=== PATIENT | male | born 1945 | race Caucasian/White ===

== ENCOUNTER 2022-09-21 05:41 | Inpatient (IN) ==
[2022-09-20 16:01] LABS: Bacteria,Urine Occasional /HPF (Few); Glucose,Urine (UA) Negative (Negative); Ketones,Urine Negative (Negative); Nitrite,Urine Negative (Negative); Protein,Urine Negative (Negative); RBC,Urine <1 /HPF (0-4); Urine Appearance Clear (Clear); Urine Color Light Yellow (Yellow)
[2022-09-20 16:02] LABS: Bilirubin,Urine Negative (Negative); Blood, Urine Negative (Negative); Urine Urobilinogen 0.2 eU/dL (<2.0)
[2022-09-20 16:03] LABS: Basophils % 0.4 % (0.0-0.8); Eosinophils # 0.4 10*3/uL (0.0-0.87); Eosinophils % 5.1 % (0.00-10.9); Hematocrit 38.8 VOL% (42.0-52.0); Hemoglobin 12.4 GM/DL (14.0-18.0); Immature Granulocytes % 0.4 %; Immature Granulocytes Absolute 0.03 #; Lymphocytes # 1.3 10*3/uL (1.4-4.0); Lymphocytes % 18.1 % (21.2-54.2); Mean Platelet Volume 11.1 FL (9.6-12.0); Monocytes # 0.6 10*3/uL (0.11-0.8); Monocytes % 8.2 % (1.7-12.7); Neutrophils % 67.8 % (38.7-73.9); Platelet Count 230 T/CUMM (130-400); Red Blood Count 3.92 MC/CUMM (3.8-5.5); Red Cell Distribution Width 13.8 % (9.3-17.3); White Blood Count 7.1 T/CUMM (4-12)
[2022-09-20 16:16] LABS: PT Patient Result 11.5 SECS (10.1-12.1); Partial Thromboplastin Time 36.5 SECS (23.7-32.9)
[2022-09-20 16:20] LABS: Albumin 3.6 G/DL (3.4-5.0); Bilirubin,Total 0.4 MG/DL (0.20-1.00); Calcium 9.1 MG/DL (8.5-10.1); Osmolality,Calculated 292.1 MOS/KG (273-304); Total Protein 6.6 G/DL (6.4-8.2)
[2022-09-21] MEDS ORDERED: CLINDAMYCIN INJ 900 MG/50 ML PREMIX IV ONE (06:00)
[2022-09-21] MEDS ORDERED: VANCOMYCIN INJ 1,000 MG in SODIUM CHLORIDE 0.9% 250 ML IV ONE ×2 (06:00→16:30)
[2022-09-21] MEDS ORDERED: LACTATED RINGERS 1,000 ML IV SCH (06:00)
[2022-09-21] MEDS ORDERED: GABAPENTIN 400 MG CAPSULE PO ONE (06:51)
[2022-09-21] MEDS ORDERED: FAMOTIDINE 20 MG TABLET PO ONE (06:51)
[2022-09-21] MEDS ORDERED: ACETAMINOPHEN 500 MG TABLET PO ONE (06:51)
[2022-09-21] MEDS ORDERED: BACITRACIN OINT 0.9 GM PACK TOP ONE (07:20)
[2022-09-21] MEDS ORDERED: ROPIVACAINE 0.5% 30 ML VIAL ONE (07:57)
[2022-09-21] MEDS ORDERED: LIDOCAINE 1% 5 ML VIAL ONE (07:57)
[2022-09-21] MEDS ORDERED: MIDAZOLAM 2 MG/2 ML VIAL ONE (08:07)
[2022-09-21] MEDS ORDERED: buprenorphine HCL 0.3 MG/ML VIAL ONE (08:07)
[2022-09-21] MEDS ORDERED: fentaNYL 100 MCG/2 ML VIAL ONE (08:07)
[2022-09-21] MEDS ORDERED: ZALEPLON 5 MG CAPSULE PO PRN (08:29)
[2022-09-21] MEDS ORDERED: diphenhydrAMINE CAP 25 MG CAPSULE PO PRN (08:29)
[2022-09-21] MEDS ORDERED: MORPHINE 2 MG/1 ML SYRINGE IV PRN ×2 (08:29)
[2022-09-21] MEDS ORDERED: ONDANSETRON 4 MG/2 ML VIAL IV PRN ×2 (08:29→10:09)
[2022-09-21] MEDS ORDERED: MAGNESIUM HYDROXIDE SUSP 30 ML UDCUP PO PRN (08:29)
[2022-09-21] MEDS ORDERED: ePHEDrine 50 MG/ML VIAL ONE (08:56)
[2022-09-21] MEDS ORDERED: ONDANSETRON 4 MG/2 ML VIAL ONE (09:00)
[2022-09-21] MEDS ORDERED: PHENYLEPHRINE 1 MG/10 ML SYRINGE IV ONE (09:00)
[2022-09-21] MEDS: LACTATED RINGERS 1,000 ML IV SCH ×2 (09:03→16:47)
[2022-09-21] MEDS ORDERED: propofoL 200 MG/20 ML VIAL IV ONE (09:48)
[2022-09-21] MEDS ORDERED: SODIUM CHLORIDE 0.9% 250 ML IV ONE (09:48)
[2022-09-21] MEDS ORDERED: HYDROmorphone 1 MG/1 ML SYRINGE IV PRN (10:09)
[2022-09-21] MEDS ORDERED: PROMETHAZINE INJ 25 MG in SODIUM CHLORIDE 0.9% 50 ML IV PRN (10:09)
[2022-09-21] MEDS ORDERED: diphenhydrAMINE 50 MG/1 ML VIAL IV PRN (10:09)
[2022-09-21] MEDS ORDERED: MEPERIDINE 25 MG/1 ML VIAL IV PRN (10:09)
[2022-09-21] MEDS: INSULIN LISPRO 100 UNIT/ML SUBCUT SCH ×3 (12:10→21:45)
[2022-09-21] MEDS: DOCUSATE SODIUM 100 MG CAPSULE PO SCH ×2 (12:14→20:40)
[2022-09-21] MEDS ORDERED: CLINDAMYCIN INJ 900 MG/50 ML PREMIX IV SCH (12:30)
[2022-09-21] MEDS: FUROSEMIDE 20 MG TABLET PO SCH (16:46)
[2022-09-21] MEDS: carvediloL 3.125 MG TABLET PO SCH (16:47)
[2022-09-21] MEDS: CLINDAMYCIN INJ 900 MG/50 ML PREMIX IV SCH (18:30)
[2022-09-21] MEDS: PIOGLITAZONE 15 MG TABLET PO SCH (20:40)
[2022-09-21] MEDS: SIMVASTATIN 20 MG TABLET PO SCH (20:41)
[2022-09-21] MEDS: MONTELUKAST 10 MG TABLET PO SCH (20:41)
[2022-09-22] MEDS: LACTATED RINGERS 1,000 ML IV SCH (01:49)
[2022-09-22] MEDS: CLINDAMYCIN INJ 900 MG/50 ML PREMIX IV SCH (01:49)
[2022-09-22] MEDS ORDERED: FONDAPARINUX 2.5 MG/0.5 ML SYRINGE SUBCUT SCH (05:00)
[2022-09-22 05:22] LABS: Basophils % 0.3 % (0.0-0.8); Eosinophils % 0.4 % (0.00-10.9); Hematocrit 36.2 VOL% (42.0-52.0); Immature Granulocytes % 0.7 %; Immature Granulocytes Absolute 0.07 #; Lymphocytes # 0.5 10*3/uL (1.4-4.0); Mean Corpuscular HGB Conc 30.4 GM/DL (32-36); Mean Corpuscular Volume 102.8 FL (87-102); Monocytes # 0.7 10*3/uL (0.11-0.8); Monocytes % 7.2 % (1.7-12.7); Neutrophils % 86.4 % (38.7-73.9); Platelet Count 190 T/CUMM (130-400); Red Blood Count 3.52 MC/CUMM (3.8-5.5); Red Cell Distribution Width 13.8 % (9.3-17.3); White Blood Count 10.2 T/CUMM (4-12)
[2022-09-22 05:47] LABS: Calcium 8.8 MG/DL (8.5-10.1); Osmolality,Calculated 284.8 MOS/KG (273-304); Potassium 5.3 MMOL/L (3.5-5.1)
[2022-09-22] MEDS: INSULIN LISPRO 100 UNIT/ML SUBCUT SCH ×4 (08:09→21:11)
[2022-09-22] MEDS: GLIMEPIRIDE 4 MG TABLET PO SCH (08:31)
[2022-09-22] MEDS: FUROSEMIDE 20 MG TABLET PO SCH ×2 (08:31→16:50)
[2022-09-22] MEDS: PANTOPRAZOLE 40 MG TABLET PO SCH (08:31)
[2022-09-22] MEDS: CHOLECALCIFEROL 5,000 UNIT TABLET PO SCH (08:31)
[2022-09-22] MEDS: carvediloL 3.125 MG TABLET PO SCH ×2 (08:32→16:50)
[2022-09-22] MEDS: DOCUSATE SODIUM 100 MG CAPSULE PO SCH ×2 (08:32→21:11)
[2022-09-22] MEDS: OLMESARTAN 5 MG TABLET PO SCH (08:32)
[2022-09-22] MEDS ORDERED: TUBERCULIN SKIN TEST 0.1 ML SYRINGE INTRADERM ONE (09:30)
[2022-09-22] MEDS: PIOGLITAZONE 15 MG TABLET PO SCH (21:11)
[2022-09-22] MEDS: SIMVASTATIN 20 MG TABLET PO SCH (21:11)
[2022-09-22] MEDS: MONTELUKAST 10 MG TABLET PO SCH (21:11)
[2022-09-22] MEDS: APIXABAN 2.5 MG TABLET PO SCH (21:11)
[2022-09-23 06:04] LABS: Basophils % 0.1 % (0.0-0.8); Eosinophils # 0.1 10*3/uL (0.0-0.87); Eosinophils % 0.5 % (0.00-10.9); Hematocrit 34.7 VOL% (42.0-52.0); Hemoglobin 11.1 GM/DL (14.0-18.0); Immature Granulocytes % 0.7 %; Immature Granulocytes Absolute 0.09 #; Lymphocytes # 0.8 10*3/uL (1.4-4.0); Lymphocytes % 6.5 % (21.2-54.2); Mean Platelet Volume 10.3 FL (9.6-12.0); Monocytes # 0.9 10*3/uL (0.11-0.8); Monocytes % 7.1 % (1.7-12.7); Neutrophils % 85.1 % (38.7-73.9); Platelet Count 192 T/CUMM (130-400); Red Blood Count 3.54 MC/CUMM (3.8-5.5); Red Cell Distribution Width 13.5 % (9.3-17.3); White Blood Count 12.2 T/CUMM (4-12)
[2022-09-23] MEDS: PANTOPRAZOLE 40 MG TABLET PO SCH (08:07)
[2022-09-23] MEDS: GLIMEPIRIDE 4 MG TABLET PO SCH (08:07)
[2022-09-23] MEDS: FUROSEMIDE 20 MG TABLET PO SCH ×2 (08:07→17:32)
[2022-09-23] MEDS: OLMESARTAN 5 MG TABLET PO SCH (08:08)
[2022-09-23] MEDS: CHOLECALCIFEROL 5,000 UNIT TABLET PO SCH (08:08)
[2022-09-23] MEDS: carvediloL 3.125 MG TABLET PO SCH ×2 (08:08→17:32)
[2022-09-23] MEDS: DOCUSATE SODIUM 100 MG CAPSULE PO SCH ×2 (08:08→20:21)
[2022-09-23] MEDS: APIXABAN 2.5 MG TABLET PO SCH ×2 (08:08→20:21)
[2022-09-23] MEDS: INSULIN LISPRO 100 UNIT/ML SUBCUT SCH ×4 (08:08→21:41)
[2022-09-23] MEDS: PIOGLITAZONE 15 MG TABLET PO SCH (20:21)
[2022-09-23] MEDS: SIMVASTATIN 20 MG TABLET PO SCH (20:21)
[2022-09-23] MEDS: MONTELUKAST 10 MG TABLET PO SCH (20:21)
[2022-09-24 05:51] LABS: Basophils % 0.1 % (0.0-0.8); Eosinophils # 0.1 10*3/uL (0.0-0.87); Eosinophils % 0.5 % (0.00-10.9); Hematocrit 35.6 VOL% (42.0-52.0); Hemoglobin 11.4 GM/DL (14.0-18.0); Immature Granulocytes % 0.6 %; Immature Granulocytes Absolute 0.07 #; Lymphocytes # 1.1 10*3/uL (1.4-4.0); Lymphocytes % 10.2 % (21.2-54.2); Mean Platelet Volume 10.7 FL (9.6-12.0); Monocytes # 0.9 10*3/uL (0.11-0.8); Monocytes % 7.9 % (1.7-12.7); Neutrophils % 80.7 % (38.7-73.9); Platelet Count 212 T/CUMM (130-400); Red Blood Count 3.67 MC/CUMM (3.8-5.5); Red Cell Distribution Width 13.4 % (9.3-17.3); White Blood Count 11.2 T/CUMM (4-12)
[2022-09-24] MEDS: INSULIN LISPRO 100 UNIT/ML SUBCUT SCH (08:30)
[2022-09-24] MEDS: DOCUSATE SODIUM 100 MG CAPSULE PO SCH (08:50)
[2022-09-24] MEDS: OLMESARTAN 5 MG TABLET PO SCH (08:50)
[2022-09-24] MEDS: FUROSEMIDE 20 MG TABLET PO SCH (08:50)
[2022-09-24] MEDS: APIXABAN 2.5 MG TABLET PO SCH (08:50)
[2022-09-24] MEDS: PANTOPRAZOLE 40 MG TABLET PO SCH (08:50)
[2022-09-24] MEDS: carvediloL 3.125 MG TABLET PO SCH (08:50)
[2022-09-24] MEDS: GLIMEPIRIDE 4 MG TABLET PO SCH (08:50)
[2022-09-24] MEDS: CHOLECALCIFEROL 5,000 UNIT TABLET PO SCH (08:50)
[2022-09-24 11:27] VITALS: BP 142/71
== END 2022-09-24 13:17 | disposition swing bed (61) | DRG 469 ==
LOC: N.OR 05:41 → N.SDSINP 05:42 → N.3E 10:44
PROVIDERS: ADMIT Orthopaedic Surgery; ATTEND Orthopaedic Surgery